=== PATIENT | female | born 1965 | race Caucasian/White ===

== ENCOUNTER 2016-05-02 20:15 | Emergency (ER) | payer MEDICARE ==
[2016-05-02] MEDS ORDERED: Ibuprofen 600 MG TAB ONE (21:46)
== END 2016-05-02 22:50 | disposition home or self-care (01) ==
LOC: ER 20:15
DX: Y00.XXXA Assault by blunt object, initial encounter (principal); Y93.89 Activity, other specified; Y92.038 Other place in apartment as the place of occurrence of the external cause; S63.637A Sprain of interphalangeal joint of left little finger, initial encounter; Z79.82 Long term (current) use of aspirin; Z79.899 Other long term (current) drug therapy; F17.210 Nicotine dependence, cigarettes, uncomplicated